=== PATIENT | male | born 1970 | race Caucasian/White ===

== ENCOUNTER 2018-12-13 10:08 | Inpatient (IN) | payer SELFPAY ==
[~2018-12-13] VITALS: Ht 175.3 cm; Wt 91.9 kg
[~2018-12-13 10:08] MED LIST: ACID1TAB7 PO; HYDR-36 PO; HYDR50TA13 PO; LEVO75TA PO; LORA0.5T PO; METO-264 PO; OMEP20CA14 PO; ROSU40TA22 PO; VALP250C PO
[2018-12-13] MEDS ORDERED: ASPI-496 PO (10:33)
[2018-12-13] MEDS ORDERED: CENTRUM PO (10:34)
--- NOTE | 2018-12-13 10:40 | NUR ---
FIRST CONTACT WITH PT. PT STATES "I WOKE UP WITH A LOT OF CONFUSION. MY RIGHT HAND WENT WEAK THIS MORNING, BUT IT IS FINE NOW." PT DENIES ANY PAIN/N/V. PT'S AOX4 HERE. SENSATION/NEURO INTACT. ALL MONITORS IN PLACE. CALL LIGHT WITHIN REACH. MEDICAL STUDENT AT BEDSIDE TO EVALUATE AT THIS TIME. PT'S AT BEDSIDE.
--- NOTE | 2018-12-13 10:56 | NUR ---
PT HAS SHINGLES ON LEFT ANTERIOR THIGH AREA. IT IS NOT OPEN WOUND. DISCUSS WITH CHARGE/FOOD TRADES ASSISTANTS AND NO ISOLATION NEEDED AT THIS TIME.
--- NOTE | 2018-12-13 11:00 | NUR ---
URINAL AT BEDSIDE.
[2018-12-13 11:15] LABS: MEAN CORPUSCULAR VOLUME 111.6 fL (81-97); MEAN PLATELET VOLUME 8.9 fL (7.4-10.4); PLATELET COUNT 127 x10^3/uL (130-400); RED BLOOD COUNT 3.37 x10^6/uL (4.38-5.82); RED CELL DISTRIBUTION WIDTH 13.5 % (9.4-14.8)
[2018-12-13 11:17] LABS: ALANINE AMINOTRANSFERASE 27 U/L (12-78); ANION GAP 6 mmol/L (5-15); CALCIUM 7.8 mg/dL (8.5-10.1); CHLORIDE 107 mmol/L (98-107); CREATININE 1.01 mg/dL (0.7-1.3)
--- NOTE | 2018-12-13 11:26 | NUR ---
WATER PROVIDED AT THIS TIME. PA NOTIFIED.
[2018-12-13 11:27] LABS: ALKALINE PHOSPHATASE 51 U/L (45-117); BILIRUBIN,TOTAL 0.2 mg/dL (0.2-1.0); TOTAL PROTEIN 5.8 g/dL (6.4-8.2)
[2018-12-13] MEDS ORDERED: PIPERACILLIN/TAZO/PMX 3.375GM 50 ML IV ONE ×2 (11:30→18:30)
[2018-12-13] MEDS ORDERED: SODIUM CHLORIDE FLUSH 10ML SYR IVF ONE (11:30)
[2018-12-13 11:35] LABS: RAPID INFLUENZA A Negative (Negative); RAPID INFLUENZA B Negative (Negative)
[2018-12-13] MEDS ORDERED: PIPERACILLIN/TAZO/PMX 3.375GM 50 ML ONE ×2 (11:40→12:24)
--- NOTE | 2018-12-13 11:54 | NUR ---
IV EST BY THIS RN AT THIS TIME. IVF INFUSING AT THIS TIME. PT TOLERATED WELL.
[2018-12-13] MEDS ORDERED: SODIUM CHLORIDE 0.9% 1,000ML IVBOLUS ONE ×2 (12:00→15:00)
--- NOTE | 2018-12-13 12:01 | NUR ---
PT IS NOT ABLE TO PROVIDE URINE SAMPLE AT THIS TIME. PT AWARES OF UA.
[2018-12-13 12:09] LABS: BASOPHILS # (AUTO) 0.04 x10^3/uL (0-0.1); BASOPHILS % (AUTO) 1 % (0-1); EOSINOPHILS # (AUTO) 0.02 x10^3/uL (0-0.4); EOSINOPHILS % (AUTO) 0 % (1-7); LYMPHOCYTES # (AUTO) 0.91 x10^3/uL (1-3.4); LYMPHOCYTES % (AUTO) 18 % (22-44); MD SCAN; MONOCYTES # (AUTO) 0.76 x10^3/uL (0.2-0.8); MONOCYTES % (AUTO) 15 % (2-9); NEUTROPHILS # (AUTO) 3.38 x10^3/uL (1.8-6.8); NEUTROPHILS % (AUTO) 66 % (42-75)
--- NOTE | 2018-12-13 12:30 | NUR ---
PT OOB TO STAND WITJH ASSIST RN STANDBY. PT ATTEMPT TO USE URINAL BUT UNABLE TO VOID AT THIS TIME. PT RTD TO BED. MONITORS IN PLACE. SP02 = 88% RA, 012 2L NC PLACED WITH EFFECT.
--- NOTE | 2018-12-13 13:16 | NUR ---
PT PROVIDED URINE SAMPLE AT THIS TIME. UA SENT.
[2018-12-13 13:23] LABS: MICROSCOPIC NOT IND
--- NOTE | 2018-12-13 13:23 | NUR ---
, ADAM [phone]
[2018-12-13 13:27] LABS: CULTURE INDICATED? NO
--- NOTE | 2018-12-13 14:31 | NUR ---
PT USED URINAL TO URINATE AT THIS TIME. PT'S AOX4. RESPS EVEN AND UNLABORED. MILLI SIERRA PROVIDED AT THIS TIME.
--- NOTE | 2018-12-13 14:59 | NUR ---
2ND IVF INFUSING AT THIS TIME. PT TOLERATED WELL.
--- NOTE | 2018-12-13 15:32 | NUR ---
REPORT GIVEN TO MARS DE ANDA. ALL QUESTIONS ANSWERED.
[2018-12-13 16:05] VITALS: BP 105/72
[2018-12-13] MEDS ORDERED: ACETAMINOPHEN 325 MG TABLET PO PRN (16:30)
[2018-12-13] MEDS ORDERED: PHARMACY MAY ADJ FOR RENAL FX MC PRN (16:30)
[2018-12-13] MEDS ORDERED: DOCUSATE 100 MG CAPSULE PO PRN (16:30)
[2018-12-13] MEDS ORDERED: VANCOMYCIN PER PHARMACY MC PRN (16:30)
[2018-12-13] MEDS ORDERED: ONDANSETRON 2MG/ML, 2ML IVPB PRN (16:30)
[2018-12-13] MEDS: SODIUM CHLORIDE 0.9% 1,000 ML IV SCH ×2 (16:46→23:00)
[2018-12-13] MEDS: ENOXAPARIN 40 MG/0.4 ML SQ SCH (16:46)
[2018-12-13] MEDS ORDERED: PHARMACOKINETIC MONITORING MC PRN (17:00)
[2018-12-13] MEDS ORDERED: PHARMACOKINETIC CONSULTATION MC ONE (17:00)
[2018-12-13] MEDS ORDERED: MAGNESIUM SULFATE PMX 4GM/100M 100 ML IV ONE (18:00)
[2018-12-13] MEDS: HYDROcodone/APAP 10/325 MG TABLET PO PRN (18:03)
[2018-12-13] MEDS: NICOTINE 14MG/24 HR PATCH.TD24 TD SCH (18:03)
[2018-12-13] MEDS: DOXYCYCLINE 100 MG in DEXTROSE 5% 250 ML IV SCH (18:04)
[2018-12-13 19:04] VITALS: BP 103/63
[2018-12-13] MEDS: PIPERACILLIN/TAZO/PMX 4.5GM 100 ML IVPB SCH (20:41)
[2018-12-13] MEDS: VALPROIC ACID 250 MG CAPSULE PO SCH (20:42)
[2018-12-13] MEDS: LACTOBACILLUS CHEW TABLET PO SCH (20:43)
[2018-12-13] MEDS: VANCOMYCIN 1,900 MG in SODIUM CHLORIDE 0.9% 250 ML IV SCH (21:52)
[2018-12-13 22:37] LABS: AMPHETAMINE SCREEN, URINE Negative (Negative); BARBITURATE SCREEN, URINE Negative (Negative); BENZODIAZEPINE SCREEN, URINE Negative (Negative); CANNABINOID SCREEN, URINE Negative (Negative); COCAINE SCREEN, URINE Negative (Negative); METHADONE SCREEN, URINE Negative (Negative); OPIATE SCREEN, URINE Positive (Negative)
[2018-12-14 00:08] VITALS: BP 105/71
[2018-12-14] MEDS: hydrOXyzine 50MG TABLET PO PRN ×3 (01:12→20:48)
[2018-12-14] MEDS: PIPERACILLIN/TAZO/PMX 4.5GM 100 ML IVPB SCH ×3 (05:05→20:55)
[2018-12-14 05:51] LABS: MEAN CORPUSCULAR HEMOGLOBIN 37.1 pg (27.5-34.5); MEAN CORPUSCULAR HGB CONC 33.4 g/dL (33.2-36.2); MEAN CORPUSCULAR VOLUME 111.1 fL (81-97); MEAN PLATELET VOLUME 8.9 fL (7.4-10.4); PLATELET COUNT 122 x10^3/uL (130-400); RED CELL DISTRIBUTION WIDTH 13.5 % (9.4-14.8)
[2018-12-14] MEDS: DOXYCYCLINE 100 MG in DEXTROSE 5% 250 ML IV SCH ×2 (06:03→18:16)
[2018-12-14] MEDS: LEVOTHYROXINE 75 MCG TABLET PO SCH (06:03)
[2018-12-14] MEDS: OMEPRAZOLE 20 MG CAPSULE.DR PO SCH (06:03)
[2018-12-14 06:04] LABS: ANION GAP 6 mmol/L (5-15); CALCIUM 7.7 mg/dL (8.5-10.1); CHLORIDE 108 mmol/L (98-107); CREATININE 0.82 mg/dL (0.7-1.3)
[2018-12-14] MEDS: HYDROcodone/APAP 10/325 MG TABLET PO PRN ×2 (06:27→20:55)
[2018-12-14 06:29] LABS: MD SCAN
[2018-12-14 06:30] LABS: BASOPHILS % (AUTO) 0 % (0-1); EOSINOPHILS % (AUTO) 0 % (1-7); LYMPHOCYTES # (AUTO) 0.59 x10^3/uL (1-3.4); LYMPHOCYTES % (AUTO) 15 % (22-44); MONOCYTES # (AUTO) 0.17 x10^3/uL (0.2-0.8); MONOCYTES % (AUTO) 5 % (2-9); NEUTROPHILS # (AUTO) 3.07 x10^3/uL (1.8-6.8); NEUTROPHILS % (AUTO) 80 % (42-75)
[2018-12-14 07:00] VITALS: BP 109/70
[2018-12-14] MEDS: LACTOBACILLUS CHEW TABLET PO SCH ×3 (09:01→20:48)
[2018-12-14] MEDS: THIAMINE 100MG TABLET PO SCH (09:01)
[2018-12-14] MEDS: ASPIRIN 81 MG TABLET EC PO SCH (09:01)
[2018-12-14] MEDS: VALPROIC ACID 250 MG CAPSULE PO SCH ×2 (09:01→20:48)
[2018-12-14] MEDS: VANCOMYCIN 1,900 MG in SODIUM CHLORIDE 0.9% 250 ML IV SCH ×2 (09:08→22:00)
[2018-12-14] MEDS ORDERED: FLUTICASONE NASAL SPRAY 16GM NAS SCH (10:00)
[2018-12-14] MEDS ORDERED: FUROSEMIDE 40 MG TABLET PO SCH (12:00)
[2018-12-14] MEDS ORDERED: SPIRONOLACTONE 100 MG TABLET PO SCH (12:00)
[2018-12-14] MEDS: SODIUM CHLORIDE NASAL SPRAY 45ML BOTTLE NAS SCH ×2 (12:54→20:56)
[2018-12-14 14:25] VITALS: BP 127/79
[2018-12-14] MEDS ORDERED: FLUTICASONE NASAL SPRAY 16GM NAS PRN (18:00)
[2018-12-14] MEDS: ENOXAPARIN 40 MG/0.4 ML SQ SCH (18:02)
[2018-12-14] MEDS: NICOTINE 14MG/24 HR PATCH.TD24 TD SCH (18:02)
[2018-12-14 19:59] VITALS: BP 108/70
[2018-12-14] MEDS: GUAIFENESIN/DM 200-20MG, 10ML UDC PO PRN (20:55)
[2018-12-15] MEDS: DIAZEPAM 5 MG TABLET PO PRN ×2 (00:14→21:41)
[2018-12-15 00:33] VITALS: BP 124/69
[2018-12-15] MEDS: PIPERACILLIN/TAZO/PMX 4.5GM 100 ML IVPB SCH ×3 (02:31→14:23)
[2018-12-15 04:56] LABS: MEAN CORPUSCULAR HEMOGLOBIN 37.2 pg (27.5-34.5); MEAN CORPUSCULAR HGB CONC 33.1 g/dL (33.2-36.2); MEAN CORPUSCULAR VOLUME 112.3 fL (81-97); MEAN PLATELET VOLUME 9.1 fL (7.4-10.4); PLATELET COUNT 125 x10^3/uL (130-400); RED BLOOD COUNT 3.37 x10^6/uL (4.38-5.82); RED CELL DISTRIBUTION WIDTH 13.8 % (9.4-14.8)
[2018-12-15 05:06] LABS: ANION GAP 5 mmol/L (5-15); CALCIUM 7.8 mg/dL (8.5-10.1); CHLORIDE 109 mmol/L (98-107); CREATININE 0.92 mg/dL (0.7-1.3)
[2018-12-15 05:27] LABS: MD YES
[2018-12-15 05:29] LABS: BAND#(MANUAL) 0.62 x10^3/uL; BANDS%(MANUAL) 8 % (0-7); LYMPHS% (MANUAL) 9 % (22-44); MONOS#(MANUAL) 0.31 x10^3/uL (0.3-2.7); MONOS% (MANUAL) 4 % (2-9); NRBC % (MANUAL) 1 % (0-1); SEG#(MANUAL) 6.16 x10^3/uL (1.8-6.8); SEGS% (MANUAL) 79 % (42-75)
[2018-12-15 05:30] LABS: <PLATELET ESTIMATE> DECREASED; <PLT MORPHOLOGY> NORMAL PLT MORPH; <RBC MORPHOLOGY> NORMAL
[2018-12-15] MEDS: LEVOTHYROXINE 75 MCG TABLET PO SCH (06:04)
[2018-12-15] MEDS: OMEPRAZOLE 20 MG CAPSULE.DR PO SCH (06:04)
[2018-12-15] MEDS: DOXYCYCLINE 100 MG in DEXTROSE 5% 250 ML IV SCH (06:04)
[2018-12-15 07:28] VITALS: BP 118/74
[2018-12-15] MEDS: LACTOBACILLUS CHEW TABLET PO SCH ×3 (08:18→20:02)
[2018-12-15] MEDS: VALPROIC ACID 250 MG CAPSULE PO SCH ×2 (08:19→21:01)
[2018-12-15] MEDS: THIAMINE 100MG TABLET PO SCH (08:19)
[2018-12-15] MEDS: ASPIRIN 81 MG TABLET EC PO SCH (08:19)
[2018-12-15] MEDS: SODIUM CHLORIDE NASAL SPRAY 45ML BOTTLE NAS SCH ×2 (08:20→20:02)
[2018-12-15] MEDS: VANCOMYCIN 1,900 MG in SODIUM CHLORIDE 0.9% 250 ML IV SCH (10:26)
[2018-12-15] MEDS: HYDROcodone/APAP 10/325 MG TABLET PO PRN (10:38)
[2018-12-15] MEDS: hydrOXyzine 50MG TABLET PO PRN ×2 (10:38→20:02)
[2018-12-15 12:32] VITALS: BP 138/77
[2018-12-15] MEDS: ENOXAPARIN 40 MG/0.4 ML SQ SCH (16:12)
[2018-12-15] MEDS ORDERED: SODIUM CHLORIDE 0.9% 1,000 ML IV SCH (16:20)
[2018-12-15] MEDS: NICOTINE 14MG/24 HR PATCH.TD24 TD SCH (17:09)
[2018-12-15 20:42] VITALS: BP 126/72
[2018-12-15] MEDS: GUAIFENESIN/DM 200-20MG, 10ML UDC PO PRN (22:47)
[2018-12-15] MEDS ORDERED: HYDROcodone/APAP 10/325 MG TABLET PO ONE (23:30)
[2018-12-16 01:32] VITALS: BP 137/80
[2018-12-16] MEDS: LEVOTHYROXINE 75 MCG TABLET PO SCH (06:06)
[2018-12-16] MEDS: OMEPRAZOLE 20 MG CAPSULE.DR PO SCH (06:06)
[2018-12-16 07:04] VITALS: BP 135/84
[2018-12-16] MEDS ORDERED: VALP250C59 PO (08:30)
[2018-12-16] MEDS ORDERED: FLU VACC QS2019-20 36MOS UP/PF 0.5 ML IM-VACC ONE (09:00)
[2018-12-16] MEDS: SODIUM CHLORIDE NASAL SPRAY 45ML BOTTLE NAS SCH (10:06)
[2018-12-16] MEDS: VALPROIC ACID 250 MG CAPSULE PO SCH (10:06)
[2018-12-16] MEDS ORDERED: VALPROIC ACID 250 MG CAPSULE PO ONE (10:30)
[2018-12-16] MEDS ORDERED: LOPERAMIDE 2 MG CAPSULE PO ONE (10:30)
[2018-12-16] MEDS: LACTOBACILLUS CHEW TABLET PO SCH (10:47)
[2018-12-16] MEDS: THIAMINE 100MG TABLET PO SCH (10:48)
[2018-12-16] MEDS: ASPIRIN 81 MG TABLET EC PO SCH (10:48)
== END 2018-12-16 11:43 | disposition home or self-care (01) | DRG 190 ==
LOC: ED 11:34 → EDIP 14:41 → 4EST 15:50
PROVIDERS: ADMIT Internal Medicine; ATTEND Family Medicine
DX: J44.1 Chronic obstructive pulmonary disease with (acute) exacerbation (principal); J18.9 Pneumonia, unspecified organism; G40.89 Other seizures; J44.0 Chronic obstructive pulmonary disease with (acute) lower respiratory infection; D53.9 Nutritional anemia, unspecified; D69.6 Thrombocytopenia, unspecified; Z23 Encounter for immunization; D75.89 Other specified diseases of blood and blood-forming organs; E03.9 Hypothyroidism, unspecified; E83.42 Hypomagnesemia; E87.6 Hypokalemia; E88.09 Other disorders of plasma-protein metabolism, not elsewhere classified; F17.200 Nicotine dependence, unspecified, uncomplicated; Z96.643 Presence of artificial hip joint, bilateral; I95.9 Hypotension, unspecified; F41.1 Generalized anxiety disorder; G89.29 Other chronic pain; I10 Essential (primary) hypertension; J32.0 Chronic maxillary sinusitis; K21.9 Gastro-esophageal reflux disease without esophagitis; Z66 Do not resuscitate; Z79.891 Long term (current) use of opiate analgesic; Z82.49 Family history of ischemic heart disease and other diseases of the circulatory system; Z85.71 Personal history of Hodgkin lymphoma; Z85.72 Personal history of non-Hodgkin lymphomas; Z85.841 Personal history of malignant neoplasm of brain
CPT/HCPCS: 36415; 70450; 71045; 80048; 80053; 80164; 80307; 81003; 83605; 83735; 84100; 84145; 84443; 85025; 87040; 87081; 87400; 90686; 93005; 96365; G0378; J1650; J2543; J3370; J7060; J3475; J7030; J7050; J7512

== ENCOUNTER 2019-06-01 17:12 | Inpatient (IN) | payer OTHER ==
[~2019-06-01] VITALS: Ht 175.3 cm; Wt 92.5 kg
[~2019-06-01 17:12] MED LIST changes: +ASPI-496 PO; +CENTRUM PO; -HYDR50TA13 PO; +HYDR50TA99 PO; -OMEP20CA14 PO; +OMEP20CA20 PO; +VALP250C59 PO
--- NOTE | 2019-06-01 17:19 | NUR ---
THIS IS A 49 YO M BIB EMS W/ C/O SEIZURES AND LT SIDED WEAKNESS. PT REPORTS HE HAD SUDDEN ONSET OF COLD SWEATS WHILE TAALKING TO WHEN SEIZURE BEGAN. DENIES HITTING HEAD. PT HAS HX OF SEIZURES. REPORTS DEPAKOTE DOSE CHANGED YESTERDAY FROM 1000MG TO 750 MG. PT HAS 0 STRENGTH/MOBILITY IN LEFT ARM AT THIS TIME. ABLE TO MOVE LEFT LEG. PT REPORTS THIS IS TYPICAL FOR HIM AFTER SEIZURES. PT REPORTS BEING ADMITTED IN NOVEMBER FOR SEZURE. PT IS RESTING ON [employer] CONNECTED TO ALL MONITORING W/ CALL LIGHT IN REACH. AT BEDSIDE FOR EVAL. AWAITING ORDERS.
--- NOTE | 2019-06-01 17:48 | NUR ---
EKG DONE BY ARNEL
--- NOTE | 2019-06-01 17:52 | NUR ---
LAB IN ROOM.
--- NOTE | 2019-06-01 17:59 | NUR ---
PT TO RAD.
[2019-06-01 18:22] LABS: BASOPHILS # (AUTO) 0.03 x10^3/uL (0-0.1); BASOPHILS % (AUTO) 0 % (0-1); EOSINOPHILS # (AUTO) 0.05 x10^3/uL (0-0.4); EOSINOPHILS % (AUTO) 1 % (1-7); LYMPHOCYTES # (AUTO) 1.55 x10^3/uL (1-3.4); LYMPHOCYTES % (AUTO) 21 % (22-44); MD NO; MEAN CORPUSCULAR VOLUME 105.8 fL (81-97); MEAN PLATELET VOLUME 9.4 fL (7.4-10.4); MONOCYTES % (AUTO) 7 % (2-9); NEUTROPHILS # (AUTO) 5.24 x10^3/uL (1.8-6.8); NEUTROPHILS % (AUTO) 71 % (42-75); PLATELET COUNT 146 x10^3/uL (130-400); RED BLOOD COUNT 3.96 x10^6/uL (4.38-5.82); RED CELL DISTRIBUTION WIDTH 13.2 % (9.4-14.8)
[2019-06-01 18:25] LABS: ALBUMIN 3.4 g/dL (3.4-5.0); ANION GAP 8 mmol/L (5-15); CALCIUM 8.4 mg/dL (8.5-10.1); CHLORIDE 106 mmol/L (98-107)
[2019-06-01 18:28] LABS: ALANINE AMINOTRANSFERASE 18 U/L (12-78); ALKALINE PHOSPHATASE 52 U/L (45-117); BILIRUBIN,TOTAL 0.4 mg/dL (0.2-1.0); CREATININE 1.11 mg/dL (0.7-1.3); TOTAL PROTEIN 6.6 g/dL (6.4-8.2)
--- NOTE | 2019-06-01 18:43 | NUR ---
PT REPORTS DIZZINESS. STATES HE FEEL LIKE HE MAY HAVE ANOTHER SEIZURE. SEIZURE PRECAUTIONS IN PLACE. VS STABLE. WILL CONTINUE TO MONITOR.
[2019-06-01] MEDS ORDERED: ROSUVASTATIN (19:09)
[2019-06-01] MEDS ORDERED: LANSOPRAZOLE (19:09)
[2019-06-01] MEDS ORDERED: VALP250C59 PO (19:09)
[2019-06-01] MEDS ORDERED: OMEPRAZOLE (19:09)
--- NOTE | 2019-06-01 19:46 | NUR ---
REPORT GIVEN TO ROYA DE ANDA. PT IS READY FOR TRANSPORT.
[2019-06-01 20:47] VITALS: BP 123/80
[2019-06-01] MEDS ORDERED: ONDANSETRON 2MG/ML, 2ML IVPush PRN (21:00)
[2019-06-01] MEDS ORDERED: hydrALAzine 20 MG/ML, 1ML IVPush PRN (21:00)
[2019-06-01] MEDS: VALPROIC ACID 250 MG CAPSULE PO SCH (21:58)
[2019-06-01] MEDS: NICOTINE 21 MG/24 HR PATCH.TD24 TD SCH (21:58)
[2019-06-01] MEDS: ATORVASTATIN 40 MG TABLET PO SCH (21:58)
[2019-06-01] MEDS: LORazepam 0.5MG TABLET PO PRN (21:58)
[2019-06-02] MEDS: LORazepam 0.5MG TABLET PO PRN (00:43)
[2019-06-02 00:47] VITALS: BP 110/75
[2019-06-02] MEDS: hydrOXyzine 50MG TABLET PO PRN (02:35)
[2019-06-02] MEDS ORDERED: SODIUM CHLORIDE NASAL SPRAY 45ML BOTTLE NAS PRN (03:00)
[2019-06-02] MEDS ORDERED: LORazepam 1MG TABLET PO ONE (03:00)
[2019-06-02 05:32] LABS: ANION GAP 7 mmol/L (5-15); CALCIUM 8.7 mg/dL (8.5-10.1); CHLORIDE 105 mmol/L (98-107)
[2019-06-02 05:33] LABS: MEAN CORPUSCULAR HEMOGLOBIN 36.4 pg (27.5-34.5); MEAN CORPUSCULAR HGB CONC 33.9 g/dL (33.2-36.2); MEAN CORPUSCULAR VOLUME 107.4 fL (81-97); MEAN PLATELET VOLUME 9.1 fL (7.4-10.4); PLATELET COUNT 146 x10^3/uL (130-400); RED BLOOD COUNT 3.77 x10^6/uL (4.38-5.82); RED CELL DISTRIBUTION WIDTH 13.4 % (9.4-14.8)
[2019-06-02 05:36] LABS: CREATININE 1.08 mg/dL (0.7-1.3)
[2019-06-02 05:37] LABS: CHOL/HDL RATIO 3.5; CHOLESTEROL, TOTAL 166 mg/dL (140-239); HDL CHOL % 28 % (26-37); HDL CHOLESTEROL (DIRECT) 47 mg/dL (40-60); LDL CHOLESTEROL,CALCULATED 79 mg/dL (54-169); LDL/HDL RATIO 1.7 (0.5-3.0); TRIGLYCERIDES 201 mg/dL (50-200); VLDL CHOLESTEROL 40 mg/dL (0-25)
[2019-06-02] MEDS ORDERED: DIAZEPAM 5 MG TABLET PO PRN (06:00)
[2019-06-02] MEDS: PANTOPRAZOLE 40MG TABLET PO SCH (06:03)
[2019-06-02] MEDS: LEVOTHYROXINE 75 MCG TABLET PO SCH (06:03)
[2019-06-02] MEDS: ASPIRIN 81 MG TABLET EC PO SCH (06:03)
[2019-06-02 06:17] LABS: BASOPHILS # (AUTO) 0.01 x10^3/uL (0-0.1); BASOPHILS % (AUTO) 0 % (0-1); EOSINOPHILS # (AUTO) 0.07 x10^3/uL (0-0.4); EOSINOPHILS % (AUTO) 1 % (1-7); LYMPHOCYTES # (AUTO) 2.31 x10^3/uL (1-3.4); LYMPHOCYTES % (AUTO) 40 % (22-44); MD SCAN; MONOCYTES # (AUTO) 0.51 x10^3/uL (0.2-0.8); MONOCYTES % (AUTO) 9 % (2-9); NEUTROPHILS % (AUTO) 50 % (42-75)
[2019-06-02 09:17] VITALS: BP 122/78
[2019-06-02] MEDS: VALPROIC ACID 250 MG CAPSULE PO SCH (09:39)
[2019-06-02] MEDS: METOPROLOL SUCCINATE 50 MG TAB.ER.24H PO SCH (09:40)
[2019-06-02] MEDS: BUTALB/APAP/CAFFEINE 50MG/325MG/40MG PO PRN ×2 (10:54→19:39)
[2019-06-02 13:26] VITALS: BP 128/88
[2019-06-02 16:50] LABS: MICROSCOPIC NOT IND
[2019-06-02 17:02] LABS: AMPHETAMINE SCREEN, URINE Positive (Negative); BARBITURATE SCREEN, URINE Positive (Negative); BENZODIAZEPINE SCREEN, URINE Negative (Negative); CANNABINOID SCREEN, URINE Negative (Negative); COCAINE SCREEN, URINE Negative (Negative); METHADONE SCREEN, URINE Negative (Negative); OPIATE SCREEN, URINE Positive (Negative)
[2019-06-02 21:03] VITALS: BP 134/82
[2019-06-02] MEDS: NICOTINE 21 MG/24 HR PATCH.TD24 TD SCH (21:12)
[2019-06-02] MEDS: ATORVASTATIN 40 MG TABLET PO SCH (23:06)
[2019-06-02] MEDS: DIVALPROEX 500 MG TAB.ER.24H PO SCH (23:06)
[2019-06-03] MEDS: hydrOXyzine 50MG TABLET PO PRN ×2 (00:10→23:19)
[2019-06-03] MEDS: ACETAMINOPHEN 325 MG TABLET PO PRN (00:10)
[2019-06-03] MEDS: BUTALB/APAP/CAFFEINE 50MG/325MG/40MG PO PRN ×3 (04:15→12:22)
[2019-06-03 04:22] VITALS: BP 144/80
[2019-06-03] MEDS: ASPIRIN 81 MG TABLET EC PO SCH (05:38)
[2019-06-03] MEDS: LEVOTHYROXINE 75 MCG TABLET PO SCH (05:38)
[2019-06-03 05:48] LABS: ANION GAP 8 mmol/L (5-15); CALCIUM 9.2 mg/dL (8.5-10.1); CHLORIDE 103 mmol/L (98-107)
[2019-06-03 05:51] LABS: CREATININE 0.84 mg/dL (0.7-1.3)
[2019-06-03 06:04] LABS: BASOPHILS # (AUTO) 0.02 x10^3/uL (0-0.1); BASOPHILS % (AUTO) 0 % (0-1); EOSINOPHILS # (AUTO) 0.06 x10^3/uL (0-0.4); EOSINOPHILS % (AUTO) 1 % (1-7); LYMPHOCYTES % (AUTO) 26 % (22-44); MD NO; MEAN CORPUSCULAR HGB CONC 33.7 g/dL (33.2-36.2); MEAN CORPUSCULAR VOLUME 106.6 fL (81-97); MEAN PLATELET VOLUME 9.4 fL (7.4-10.4); MONOCYTES # (AUTO) 0.64 x10^3/uL (0.2-0.8); MONOCYTES % (AUTO) 8 % (2-9); NEUTROPHILS # (AUTO) 5.52 x10^3/uL (1.8-6.8); NEUTROPHILS % (AUTO) 66 % (42-75); PLATELET COUNT 155 x10^3/uL (130-400); RED BLOOD COUNT 4.11 x10^6/uL (4.38-5.82); RED CELL DISTRIBUTION WIDTH 13.2 % (9.4-14.8)
[2019-06-03 07:00] VITALS: BP 140/81
[2019-06-03] MEDS ORDERED: FENTANYL PF 100 MCG/2ML ONE (08:54)
[2019-06-03] MEDS ORDERED: MIDAZOLAM 1 MG/ML, 5ML ONE (08:54)
[2019-06-03] MEDS ORDERED: GADOTERATE 10 MMOL/20 ML SYR ONE (09:49)
[2019-06-03] MEDS: PANTOPRAZOLE 40MG TABLET PO SCH (10:33)
[2019-06-03] MEDS: DIVALPROEX 500 MG TAB.ER.24H PO SCH ×2 (10:33→21:00)
[2019-06-03] MEDS: METOPROLOL SUCCINATE 50 MG TAB.ER.24H PO SCH (10:33)
[2019-06-03 13:02] VITALS: BP 137/73
[2019-06-03] MEDS ORDERED: MAGNESIUM SULFATE PMX 2GM/50ML 50 ML IV ONE (16:30)
[2019-06-03] MEDS ORDERED: AMPH25CA4 PO (18:23)
[2019-06-03 20:15] VITALS: BP 107/71
[2019-06-03] MEDS: LORazepam 0.5MG TABLET PO PRN (20:27)
[2019-06-03] MEDS: ATORVASTATIN 40 MG TABLET PO SCH (20:27)
[2019-06-03] MEDS: NICOTINE 21 MG/24 HR PATCH.TD24 TD SCH (20:28)
[2019-06-04 02:41] VITALS: BP 134/86
[2019-06-04] MEDS: ASPIRIN 81 MG TABLET EC PO SCH (04:50)
[2019-06-04] MEDS: LEVOTHYROXINE 75 MCG TABLET PO SCH (04:56)
[2019-06-04 05:02] LABS: BASOPHILS # (AUTO) 0.03 x10^3/uL (0-0.1); BASOPHILS % (AUTO) 0 % (0-1); EOSINOPHILS # (AUTO) 0.03 x10^3/uL (0-0.4); EOSINOPHILS % (AUTO) 0 % (1-7); LYMPHOCYTES # (AUTO) 2.59 x10^3/uL (1-3.4); LYMPHOCYTES % (AUTO) 27 % (22-44); MD NO; MEAN CORPUSCULAR HEMOGLOBIN 36.2 pg (27.5-34.5); MEAN CORPUSCULAR HGB CONC 34.2 g/dL (33.2-36.2); MEAN CORPUSCULAR VOLUME 105.9 fL (81-97); MEAN PLATELET VOLUME 9.4 fL (7.4-10.4); MONOCYTES # (AUTO) 0.84 x10^3/uL (0.2-0.8); MONOCYTES % (AUTO) 9 % (2-9); NEUTROPHILS # (AUTO) 6.02 x10^3/uL (1.8-6.8); NEUTROPHILS % (AUTO) 63 % (42-75); PLATELET COUNT 152 x10^3/uL (130-400); RED BLOOD COUNT 4.26 x10^6/uL (4.38-5.82); RED CELL DISTRIBUTION WIDTH 13.4 % (9.4-14.8)
[2019-06-04 05:18] LABS: ANION GAP 11 mmol/L (5-15); CALCIUM 9.2 mg/dL (8.5-10.1); CHLORIDE 102 mmol/L (98-107); CREATININE 0.95 mg/dL (0.7-1.3)
[2019-06-04] MEDS: METOPROLOL SUCCINATE 50 MG TAB.ER.24H PO SCH (07:40)
[2019-06-04] MEDS: PANTOPRAZOLE 40MG TABLET PO SCH (07:40)
[2019-06-04] MEDS: BUTALB/APAP/CAFFEINE 50MG/325MG/40MG PO PRN ×3 (07:40→23:21)
[2019-06-04 09:51] VITALS: BP 140/79
[2019-06-04] MEDS: DIVALPROEX 500 MG TAB.ER.24H PO SCH ×2 (10:38→20:31)
[2019-06-04] MEDS ORDERED: MAGNESIUM SULFATE PMX 2GM/50ML 50 ML IV ONE (12:00)
[2019-06-04 12:20] VITALS: BP 135/82
[2019-06-04 19:03] VITALS: BP 95/63
[2019-06-04] MEDS: ATORVASTATIN 40 MG TABLET PO SCH (20:31)
[2019-06-04] MEDS: NICOTINE 21 MG/24 HR PATCH.TD24 TD SCH (20:31)
[2019-06-04] MEDS: LORazepam 0.5MG TABLET PO PRN (20:40)
[2019-06-04] MEDS ORDERED: GUAIFENESIN 200 MG TABLET PO PRN (21:00)
[2019-06-05] MEDS ORDERED: LORazepam 2 MG/ML, 1ML ONE ×5 (00:25→15:56)
[2019-06-05] MEDS ORDERED: LORazepam 2 MG/ML, 1ML IVPush ONE ×2 (00:30→16:15)
[2019-06-05 02:07] VITALS: BP 116/73
[2019-06-05] MEDS: ASPIRIN 81 MG TABLET EC PO SCH (04:40)
[2019-06-05] MEDS: LEVOTHYROXINE 75 MCG TABLET PO SCH (04:40)
[2019-06-05 05:56] LABS: ALBUMIN 3.4 g/dL (3.4-5.0); ANION GAP 9 mmol/L (5-15); CALCIUM 9.2 mg/dL (8.5-10.1); CHLORIDE 105 mmol/L (98-107)
[2019-06-05 06:00] LABS: ALANINE AMINOTRANSFERASE 21 U/L (12-78); ALKALINE PHOSPHATASE 59 U/L (45-117); BILIRUBIN,TOTAL 0.4 mg/dL (0.2-1.0); CREATININE 1.08 mg/dL (0.7-1.3); TOTAL PROTEIN 7.5 g/dL (6.4-8.2)
[2019-06-05 06:29] VITALS: BP 92/75
[2019-06-05] MEDS: BUTALB/APAP/CAFFEINE 50MG/325MG/40MG PO PRN (07:21)
[2019-06-05] MEDS: DIVALPROEX 500 MG TAB.ER.24H PO SCH ×2 (07:21→23:06)
[2019-06-05] MEDS: PANTOPRAZOLE 40MG TABLET PO SCH (07:21)
[2019-06-05] MEDS: METOPROLOL SUCCINATE 50 MG TAB.ER.24H PO SCH (07:22)
[2019-06-05 12:58] VITALS: BP 114/73
[2019-06-05] MEDS ORDERED: LORazepam 2 MG/ML, 1ML IVPush PRN ×2 (16:00→16:30)
[2019-06-05] MEDS ORDERED: LEVETIRACETAM 750 MG in SODIUM CHLORIDE 0.9% 100 ML IV ONE (16:00)
[2019-06-05 16:30] VITALS: BP 112/61
[2019-06-05 16:42] LABS: MEAN CORPUSCULAR HGB CONC 33.7 g/dL (33.2-36.2); MEAN CORPUSCULAR VOLUME 106.6 fL (81-97); MEAN PLATELET VOLUME 8.6 fL (7.4-10.4); PLATELET COUNT 206 x10^3/uL (130-400); RED BLOOD COUNT 4.31 x10^6/uL (4.38-5.82); RED CELL DISTRIBUTION WIDTH 12.9 % (9.4-14.8)
[2019-06-05 16:52] LABS: ALANINE AMINOTRANSFERASE 23 U/L (12-78); ALBUMIN 3.5 g/dL (3.4-5.0); ANION GAP 10 mmol/L (5-15); CALCIUM 9.3 mg/dL (8.5-10.1); CHLORIDE 105 mmol/L (98-107); CREATININE 1.21 mg/dL (0.7-1.3)
[2019-06-05 16:55] LABS: ALKALINE PHOSPHATASE 57 U/L (45-117); BILIRUBIN,TOTAL 0.2 mg/dL (0.2-1.0); TOTAL PROTEIN 7.6 g/dL (6.4-8.2)
[2019-06-05 17:00] VITALS: BP 108/66
[2019-06-05 17:02] LABS: BASOPHILS # (AUTO) 0.07 x10^3/uL (0-0.1); BASOPHILS % (AUTO) 1 % (0-1); EOSINOPHILS # (AUTO) 0.08 x10^3/uL (0-0.4); EOSINOPHILS % (AUTO) 1 % (1-7); LYMPHOCYTES # (AUTO) 2.46 x10^3/uL (1-3.4); LYMPHOCYTES % (AUTO) 38 % (22-44); MD SCAN; MONOCYTES # (AUTO) 0.76 x10^3/uL (0.2-0.8); MONOCYTES % (AUTO) 12 % (2-9); NEUTROPHILS # (AUTO) 3.13 x10^3/uL (1.8-6.8); NEUTROPHILS % (AUTO) 48 % (42-75)
[2019-06-05 18:54] VITALS: BP 118/83
[2019-06-05] MEDS: NICOTINE 21 MG/24 HR PATCH.TD24 TD SCH (23:06)
[2019-06-05] MEDS: ATORVASTATIN 40 MG TABLET PO SCH (23:06)
[2019-06-06 00:30] VITALS: BP 112/86
[2019-06-06] MEDS: BUTALB/APAP/CAFFEINE 50MG/325MG/40MG PO PRN ×3 (02:39→23:09)
[2019-06-06 04:51] LABS: ALBUMIN 3.5 g/dL (3.4-5.0); ANION GAP 8 mmol/L (5-15); CALCIUM 9.1 mg/dL (8.5-10.1); CHLORIDE 103 mmol/L (98-107)
[2019-06-06 05:01] LABS: ALANINE AMINOTRANSFERASE 22 U/L (12-78); ALKALINE PHOSPHATASE 56 U/L (45-117); BILIRUBIN,TOTAL 0.4 mg/dL (0.2-1.0); TOTAL PROTEIN 7.3 g/dL (6.4-8.2)
[2019-06-06] MEDS: LEVOTHYROXINE 75 MCG TABLET PO SCH (06:36)
[2019-06-06] MEDS: PANTOPRAZOLE 40MG TABLET PO SCH (06:36)
[2019-06-06] MEDS: ASPIRIN 81 MG TABLET EC PO SCH (06:36)
[2019-06-06 07:25] VITALS: BP 122/89
[2019-06-06] MEDS: DIVALPROEX 500 MG TAB.ER.24H PO SCH (09:07)
[2019-06-06] MEDS: METOPROLOL SUCCINATE 50 MG TAB.ER.24H PO SCH (09:07)
[2019-06-06 13:44] VITALS: BP 130/81
[2019-06-06 18:38] VITALS: BP 124/76
[2019-06-06] MEDS: ATORVASTATIN 40 MG TABLET PO SCH (20:43)
[2019-06-06] MEDS: NICOTINE 21 MG/24 HR PATCH.TD24 TD SCH (20:44)
[2019-06-06] MEDS ORDERED: DIVALPROEX 250 MG TAB.ER.24H PO SCH (21:00)
[2019-06-06] MEDS: hydrOXyzine 50MG TABLET PO PRN (21:40)
[2019-06-06] MEDS: ACETAMINOPHEN 325 MG TABLET PO PRN (21:40)
[2019-06-07 00:19] VITALS: BP 108/83
[2019-06-07] MEDS: LORazepam 0.5MG TABLET PO PRN (02:35)
[2019-06-07] MEDS ORDERED: LORazepam 2 MG/ML, 1ML IVPush ONE (03:00)
[2019-06-07] MEDS: ACETAMINOPHEN 325 MG TABLET PO PRN (05:48)
[2019-06-07] MEDS: ASPIRIN 81 MG TABLET EC PO SCH (05:48)
[2019-06-07] MEDS: LEVOTHYROXINE 75 MCG TABLET PO SCH (05:49)
[2019-06-07 06:22] LABS: MEAN CORPUSCULAR HEMOGLOBIN 35.9 pg (27.5-34.5); MEAN CORPUSCULAR HGB CONC 33.8 g/dL (33.2-36.2); MEAN CORPUSCULAR VOLUME 106.2 fL (81-97); MEAN PLATELET VOLUME 9.2 fL (7.4-10.4); PLATELET COUNT 191 x10^3/uL (130-400); RED BLOOD COUNT 4.13 x10^6/uL (4.38-5.82); RED CELL DISTRIBUTION WIDTH 13.3 % (9.4-14.8)
[2019-06-07 06:26] LABS: ANION GAP 8 mmol/L (5-15); CALCIUM 9.2 mg/dL (8.5-10.1); CHLORIDE 102 mmol/L (98-107)
[2019-06-07 06:28] LABS: CREATININE 0.98 mg/dL (0.7-1.3)
[2019-06-07 06:41] LABS: MD SCAN
[2019-06-07 06:43] LABS: BASOPHILS # (AUTO) 0.04 x10^3/uL (0-0.1); BASOPHILS % (AUTO) 0 % (0-1); EOSINOPHILS % (AUTO) 1 % (1-7); LYMPHOCYTES # (AUTO) 3.63 x10^3/uL (1-3.4); LYMPHOCYTES % (AUTO) 33 % (22-44); MONOCYTES # (AUTO) 0.89 x10^3/uL (0.2-0.8); MONOCYTES % (AUTO) 8 % (2-9); NEUTROPHILS # (AUTO) 6.32 x10^3/uL (1.8-6.8); NEUTROPHILS % (AUTO) 58 % (42-75)
== END 2019-06-07 08:45 | disposition left against medical advice (07) | DRG 101 ==
LOC: ED 17:43 → EDIP 18:44 → 3N 20:25 → CCU 06-05 16:03 → 3N 06-05 17:41
PROVIDERS: ADMIT Family Medicine; ATTEND Hospitalist
DX: G40.509 Epileptic seizures related to external causes, not intractable, without status epilepticus (principal); F05 Delirium due to known physiological condition; G40.909 Epilepsy, unspecified, not intractable, without status epilepticus; E03.9 Hypothyroidism, unspecified; E78.5 Hyperlipidemia, unspecified; F17.200 Nicotine dependence, unspecified, uncomplicated; F41.9 Anxiety disorder, unspecified; G43.909 Migraine, unspecified, not intractable, without status migrainosus; G47.00 Insomnia, unspecified; I10 Essential (primary) hypertension; J32.0 Chronic maxillary sinusitis; G83.9 Paralytic syndrome, unspecified; G93.89 Other specified disorders of brain; W19.XXXA Unspecified fall, initial encounter; Z85.71 Personal history of Hodgkin lymphoma; Z92.21 Personal history of antineoplastic chemotherapy; Z85.841 Personal history of malignant neoplasm of brain; Z96.643 Presence of artificial hip joint, bilateral; Z79.82 Long term (current) use of aspirin; Z79.899 Other long term (current) drug therapy; X58.XXXA Exposure to other specified factors, initial encounter; Y93.89 Activity, other specified; Y92.89 Other specified places as the place of occurrence of the external cause; Y99.8 Other external cause status
CPT/HCPCS: 36415; 36600; 70450; 70553; 71045; 80048; 80053; 80061; 80164; 80307; 81003; 82550; 82803; 83605; 83735; 84100; 84443; 85025; 87081; 93005; 99156; 99157; 99285; G0378; J2250; J3010; A9575; J2060; J3475